=== PATIENT | female | born 1980 | race Caucasian/White ===

== ENCOUNTER 2020-05-08 11:41 | Emergency (ER) | payer OTHER, SELFPAY ==
--- NOTE | ~2020-05-08 | XR_ITS ---
EXAMINATION: XR ankle RT min 3V EXAM DATE: 05/08/2020 12:00 INDICATION: Twisted right ankle getting out of bed. Lateral pain. Initial encounter. TECHNIQUE: Right ankle frontal, lateral and oblique projections obtained and reviewed. There is no p rior study for comparison. FINDINGS: The right ankle mortise appears intact. There are no acute fractures or dislocations iden tified. There is no subcutaneous gas. The soft tissue is unremarkable. There are no radiopaque fo reign bodies. IMPRESSION: Right ankle exam without acute osseous findings. Reviewed, dictated and finalized at location A.
[2020-05-08 11:53] VITALS: BP 120/79; PULSE 71; RESP 16; TEMP 36.3; O2SAT 100
--- NOTE | 2020-05-08 12:16 | ED.GENADULT ---
HPI - General Adult General Chief complaint: Extremity Injury, Lower Stated complaint: injured r ankle Time Seen by Provider: 05/08/20 11:51 Source: patient and RN notes reviewed Mode of arrival: ambulatory Limitations: no limitations History of Present Illness HPI narrative: 40-year-old female presents with complaints of tenderness to the right ankle for the past 4.5 hours. Naima reports getting out of bed (approximately 07:30 am) and twisting RT ankle causing injury, went to work, increase activity causing increase pain. No treatment. No radiating pain. No numbness or tingling or loss of mobility. Denies inability to bear weight. Exacerbation factor consist of palpation and weight bearing. The relieving factor is immobility. Denies discoloration. Denies altered sensation and suspected foreign body. Denies fever. The patient reports she have not been diagnosed with COVID-19. The patient reports she received Innove[employer]ra COVID-19 vaccine 03/18/2020 and 04/08/2020. The patient reports she is not waiting for the results of a COVID-19 lab test. The patient reports she do not have chills, weakness, or fatigue. The patient reports she do not have a new or worsening cough or shortness of breath. Denies chest pain. The patient reports she do not have any rhinorrhea, congestion, sore throat, loss of taste or smell, nausea, vomiting, abdominal pain, and diarrhea. Tolerating po intake well. Denies recent traveling. Denies concerns for COVID-19 or exposures been home with limited outdoor exposure except for essential household needs, work, and return home. At this time, patient is not suspected of having COVID-19. Some parts of this dictation were generated by voice recognition software and may contain typographical and/or grammatical inaccuracies. Related Data Allergies Allergy/AdvReac Type Severity Reaction Status Date / Time shellfish derived Allergy Unknown Verified 05/08/20 11:50 Review of Systems Review of Systems: Narrative: CONSTITUTIONAL: Denies fever, chills, sweats. EYES: Denies visual changes, redness, discharge. ENT: Denies rhinorrhea, congestion, sore throat, otalgia. CARDIOVASCULAR: Denies chest pain, palpitations, edema. RESPIRATORY: Denies dyspnea, wheezing, cough. GASTROINTESTINAL: Denies abdominal pain, nausea, vomiting, diarrhea. SKIN: Denies rash or itching. MUSCULOSKELETAL: Denies acute back pain or myalgia. Complains of RT ankle tenderness. NEUROLOGIC: Denies numbness or focal weakness. PSYCHIATRIC: Denies anxiety or depression. All other systems reviewed & are unremarkable except as noted in HPI and below. PMFSH Past Medical History Medical History (Updated 05/09/20 @ 00:00 by Lupillo Vieira) Polycystic ovary disease Smoker Vaginal delivery X1 Surgical History Surgical History (Updated 05/08/20 @ 12:33 by PHILIP Talamantes) History of bilateral salpingo-oophorectomy 04/2019 History of exploratory laparotomy X5 Family History Family History (Updated 05/08/20 @ 12:34 by PHILIP Talamantes) Father Alive and well Mother Depression Bipolar disorder Social History Social History (Updated 05/08/20 @ 12:35 by PHILIP Talamantes) Smoking packs per day: 0.5 Smoking cigarettes per day: 10.0 Years smoked: 10 Smoking pack-years: 5.00 Smoking status: Current every day smoker Tobacco type: cigarettes Second hand tobacco smoke exposure: Yes (spouse) Alcohol intake: current Substance use: never Living arrangements: with family Occupation/Education: occupation Gender identity (if verbalized by the patient): Female Sexual Orientation (if Verbalized by the Patient): Straight or Heterosexual Comments At time of signature, agree with nurse past medical, surgical, social, and family history. There is no relevant family history pertinent to the presenting complaint. Exam Narrative: Exam Narrative: GENERAL: This is a well-nourished, well-developed nelson
== END 2020-05-08 12:37 | disposition home or self-care (01) ==
PROVIDERS: Emergency Provider Nurse Practitioner Family
DX: S93.401A Sprain of unspecified ligament of right ankle, initial encounter (principal); X50.9XXA Other and unspecified overexertion or strenuous movements or postures, initial encounter; F17.210 Nicotine dependence, cigarettes, uncomplicated; E28.2 Polycystic ovarian syndrome
CPT/HCPCS: 73610; 99203; G0463